=== PATIENT | female | born 1965 | race Caucasian/White ===

== ENCOUNTER 2020-10-25 07:38 | Outpatient (CLI) | payer OTHER, SELFPAY ==
--- NOTE | ~2020-10-25 | XR_ITS ---
EXAMINATION: XR hand BI arthritis min 3V EXAM DATE: 10/25/2020 08:24 INDICATION: M05.79 - Rheumatoid arthritis with rheumatoid factor of multiple sites without organ or s ystems involvement . TECHNIQUE: Right hand frontal, lateral and oblique projections obtained and reviewed. Left hand fron tucker, lateral and oblique projections obtained and reviewed. Catchers projection of both hands. There is no prior study for comparison. FINDINGS: Right hand: There are no bony erosions identified. There is mild 1st metacarpophalangeal, polyarticul ar interphalangeal primary osteoarthritis. There are no acute fractures or dislocations identified. There is no subcutaneous gas. The soft tissue is unremarkable. There are no radiopaque foreign bod ies. Left hand: Mild 2nd metacarpophalangeal, polyarticular interphalangeal primary osteoarthritis. There are no bony erosions identified. There are no acute fractures or dislocations identified. There is no subcutaneous gas. The soft tissue is unremarkable. There are no radiopaque foreign bodies. IMPRESSION: Mild polyarticular osteoarthritis. No erosions. Reviewed, dictated and finalized at location B.
--- NOTE | ~2020-10-25 | XR_ITS ---
EXAMINATION: XR foot RT standing 2V EXAM DATE: 10/25/2020 08:24 INDICATION: M05.79 - Rheumatoid arthritis with rheumatoid factor of multiple sites without organ or s ystems involvement. TECHNIQUE: Frontal and lateral projections of the right foot standing. Correlation is made to contra lateral foot same date. FINDINGS: There is minimal 1st metatarsophalangeal joint primary osteoarthritis. There are no bony e rosions identified. There are no acute fractures or dislocations identified. There is no subcutaneou s gas. The soft tissue is unremarkable. There are no radiopaque foreign bodies. IMPRESSION: Minimal right 1st MTP osteoarthritis. Reviewed, dictated and finalized at location B.
--- NOTE | ~2020-10-25 | XR_ITS ---
EXAMINATION: XR foot LT standing 2V EXAM DATE: 10/25/2020 08:24 INDICATION: M05.79 - Rheumatoid arthritis with rheumatoid factor of mult. TECHNIQUE: Frontal and lateral projections of the left foot standing. Correlation is made to contral ateral foot same date. FINDINGS: There are no bony erosions identified. There is mild left 1st metatarsophalangeal primary osteoarthritis. There are no acute fractures or dislocations identified. There is no subcutaneous ga s. The soft tissue is unremarkable. There are no radiopaque foreign bodies. IMPRESSION: Mild left 1st MTP osteoarthritis. Reviewed, dictated and finalized at location B.
[2020-10-25 08:13] LABS: Hematocrit 39.3 % (37.0-47.0); Hemoglobin 13.2 g/dL (12.0-15.0); Mean Corpuscular HGB Conc 33.6 g/dl (32-36); Mean Corpuscular Hemoglobin 30.6 pg (26-34); Mean Corpuscular Volume 91.2 fl (80-100); Mean Platelet Volume 9.7 fl (7.4-10.4); Platelet Count Result 188 k/mm3 (150-375); Red Blood Count 4.31 M/mm3 (4.2-5.4); Red Cell Distribution Width 12.3 % (11.5-14.5); White Blood Count 5.1 K/mm3 (4.5-10.0)
[2020-10-25 08:25] LABS: Add Urine Microscopic? YES; Appearance Urine Clear (Clear); Bacteria Urine Trace /hpf; Bilirubin Urine Negative (Negative); Blood Urine 2+ (Negative); Color Urine Yellow (Yellow); Glucose Urine UA Negative (Negative); Ketones Urine Negative (Negative); Leukocyte Esterase Ur 2+ LEU/UL (Negative); Mucus Urine Rare /lpf; Nitrate Urine Negative (Negative); Protein Urine Negative (Negative); Specific Grav Ur 1.013 (1.001-1.035); Squamous Epithelial Cell Urine Few /hpf (Few); Urobilinogen Urine Negative mg/dL (<2.0); WBC Urine 0-3 /hpf
[2020-10-25 08:29] LABS: Rheumatoid Factor 40.8 IU/ML (<12)
[2020-10-25 08:58] LABS: Thyroid Stimulating Hormone 0.788 uIU/mL (0.465-4.680)
[2020-10-25 09:36] LABS: Alanine Aminotransferase 74 U/L (4-35); Albumin Level 4.1 g/dL (3.5-5.1); Alkaline Phosphatase 71 U/L (38-126); Anion Gap 7 mmol/L (8-16); Aspartate Amino Transferase 65 U/L (14-36); Bilirubin,Total 0.3 mg/dL (0.2-1.3); Blood Urea Nitrogen 12 mg/dL (7-17); CRP 0.6 mg/dL (<1.0); Calcium 8.9 mg/dL (8.4-10.2); Carbon Dioxide 27 mmol/L (22-30); Chloride 107 mmol/L (98-107); Estimated Glomerular Filt Rate > 60; Glucose 97 mg/dL (65-105); Sodium 141 mmol/L (137-145)
[2020-10-25 09:40] LABS: LDL Cholesterol Direct 99 mg/dL
[2020-10-25 09:41] LABS: Cholesterol 218 mg/dL (0-200); HDL Direct 58 mg/dL; Triglycerides 61 mg/dL (<150)
[2020-10-25 10:09] LABS: Free T4 Free Thyroxine 1.36 ng/mL (0.78-2.19)
[2020-10-25 11:42] LABS: Erythrocyte Sedimentation Rate 31 mm/hr (0-20)
[2020-10-27 10:06] LABS: Anti Cyclic Citrullinated Pept 194 Units (<20)
== END 2020-10-25 07:39 | disposition home or self-care (01) ==
PROVIDERS: PCP Family Medicine; Referring Provider Internal Medicine; Visit Provider Family Medicine
DX: M05.79 Rheumatoid arthritis with rheumatoid factor of multiple sites without organ or systems involvement (principal); E03.9 Hypothyroidism, unspecified; Z13.220 Encounter for screening for lipoid disorders; M19.042 Primary osteoarthritis, left hand; M19.041 Primary osteoarthritis, right hand; M19.072 Primary osteoarthritis, left ankle and foot; M19.071 Primary osteoarthritis, right ankle and foot
CPT/HCPCS: 36415; 73130; 73620; 80053; 80061; 81001; 84439; 84443; 85027; 85652; 86038; 86039; 86140; 86200; 86430

== ENCOUNTER 2021-10-31 18:24 | Emergency (ER) | payer OTHER, SELFPAY ==
--- NOTE | ~2021-10-31 | XR_ITS ---
EXAMINATION: XR chest 2V Exam Date/Time: 10/31/2021 19:20 CDT HISTORY: palpitations X TODAY, HX MITRAL VALVE PROLAPSE X20 YRS AGO Comparison: 04/12/2004 and 04/25/2004. RESULT: Lines, tubes, and devices: None. Lungs and pleura: Clear. Cardiomediastinal silhouette: Stable cardiomediastinal silhouette. Other: No acute osseous or upper abdominal finding. IMPRESSION: No acute cardiopulmonary process. Reviewed, dictated and finalized at location K.
--- NOTE | 2021-10-31 18:27 | ECG_ITS ---
Measurements Intervals [place] Rate: 137 P: 74 RI: 146 QRS: 114 QRSD: 102 T: 62 QT: 314 QTc: 474 Interpretive Statements SINUS TACHYCARDIA BASELINE ARTIFACT LEFT POSTERIOR FASCICULAR BLOCK BORDERLINE ECG NO PREVIOUS ECG AVAILABLE FOR COMPARISON Electronically Signed On 11-01-2021 14:34:24 CDT by See Brown M.D.
[2021-10-31 18:38] LABS: Basophils Absolute Auto 0.1 K/mm3 (0.0-0.1); Basophils Percent Auto 0.7 % (0.2-1.2); Eosinophils Absolute Auto 0.3 K/mm3 (0-0.3); Eosinophils Percent Auto 4.3 % (0-4.4); Hematocrit 41.4 % (37.0-47.0); Immature Granulocyte Absolute 0.01 K/mm3 (0.00-0.031); Immature Granulocyte Percent A 0.1 % (0-0.5); Lymphocytes Absolute Auto 2.58 K/mm3 (0.9-3.2); Lymphocytes Percent Auto 38.6 % (18.3-44.2); Mean Corpuscular HGB Conc 33.8 g/dl (32-36); Mean Corpuscular Volume 88.8 fl (80-100); Monocytes Absolute Auto 0.6 K/mm3 (0.1-0.6); Monocytes Percent Auto 8.2 % (2.6-8.5); Neutrophils Absolute Auto 3.2 K/mm3 (1.3-6.7); Neutrophils Percent Auto 48.1 % (45.5-73.1); Platelet Count Result 209 k/mm3 (150-375); Red Blood Count 4.66 M/mm3 (4.2-5.4); Red Cell Distribution Width 12.1 % (11.5-14.5); White Blood Count 6.7 K/mm3 (4.5-10.0)
[2021-10-31 18:52] LABS: Partial Thromboplastin Time 28.3 SECONDS (22.3-36.8); Prothrombin Time 12.6 Seconds (11.1-14.7)
[2021-10-31 18:55] LABS: Alanine Aminotransferase 22 U/L (6-35); Albumin Level 4.9 g/dL (3.5-5.1); Alkaline Phosphatase 84 U/L (38-126); Anion Gap 11 mmol/L (8-16); Aspartate Amino Transferase 31 U/L (14-36); Bilirubin,Total 0.3 mg/dL (0.2-1.3); Blood Urea Nitrogen 13 mg/dL (7-17); Calcium 9.4 mg/dL (8.4-10.2); Carbon Dioxide 25 mmol/L (22-30); Chloride 103 mmol/L (98-107); Estimated Glomerular Filt Rate > 60; Glucose 137 mg/dL (65-110); Lipase 149 U/L (23-300); Potassium 3.1 mmol/L (3.4-5.0); Sodium 139 mmol/L (137-145)
[2021-10-31 19:11] LABS: Troponin I < 0.012 ng/mL (0.000-0.034)
[2021-10-31 19:15] VITALS: BP 171/79; PULSE 104; RESP 18; TEMP 37.2; O2SAT 99
[2021-10-31 21:13] VITALS: BP 136/85; PULSE 94; RESP 20; O2SAT 99
--- NOTE | 2021-10-31 21:37 | ECG_ITS ---
Measurements Intervals [place] Rate: 82 P: 71 WV: 171 QRS: 68 QRSD: 106 T: 43 QT: 365 QTc: 428 Interpretive Statements SINUS RHYTHM NORMAL ECG COMPARED TO ECG 10/31/2021 18:28:44 HEART RATE HAS DECREASED AND LEFT POSTERIOR FASCICULAR BLOCK NO LONGER APPRECIATED Electronically Signed On 11-01-2021 14:37:46 CDT by See Brown M.D.
--- NOTE | 2021-10-31 21:38 | ED.ARRPALP ---
HPI - Arrhythmia/Palpitations General Chief Complaint: Arrhythmia/Palpitations <ELIDA Santiago Last Filed: 11/01/21 02:50> Stated Complaint: heart racing <Tejal Corey PA-C - Last Filed: 11/01/21 02:50> Time Seen by Provider: 10/31/21 21:25 <ELIDA Santiago Last Filed: 11/01/21 02:50> History of Present Illness HPI narrative: Patient is a 56-year-old female here with a history of hypothyroidism here for evaluation of several seconds of palpitations earlier today. Patient states that she was at dinner when she noted that her heart was going very fast and she believes she skipped several beats. This lasted for several seconds at a time, and resolved without intervention. She does state that she has a history of palpitations but they usually do not last this long. She denies any chest pain, shortness of breath, syncope, headaches, dizziness, nausea, vomiting, abdominal pain. She has a history of mitral valve prolapse that was diagnosed with an echocardiogram, but she has not had one for the past decade. <ELIDA Santiago Last Filed: 11/01/21 02:50> Related Data Allergies/Adverse Reactions: Allergies Allergy/AdvReac Type Severity Reaction Status Date / Time No Known Allergies Allergy Verified 10/31/21 19:18 <Tejal Corey PA-C - Last Filed: 11/01/21 02:50> Review of Systems Review of Systems: Gen.: Denies fevers or chills Eyes: Denies eye pain or visual change ENT: Denies congestion Respiratory: Denies shortness of breath or cough CV: Reports palpitations. GI: Denies abdominal pain nausea, emesis or diarrhea denies burning, urgency, frequency or hematuria Musculoskeletal: Denies back pain or muscle pain Neuro: Denies numbness, tingling, weakness or focal weakness Skin: Denies rash Except as documented, all other systems reviewed and negative <ELIDA Santiago Last Filed: 11/01/21 02:50> [facility] Past Medical History Medical History: Medical History ANNIE positive Arthritis History of IBS Hypothyroidism Mitral valve prolapse Nasal drainage Rheumatoid arthritis with rheumatoid factor of multiple sites without organ or systems involvement Screening for lipid disorders Thyroid disorder Transaminitis <Tejal Corey PA-C - Last Filed: 11/01/21 02:50> Family History Family History: Family History Father Alcoholism Mother Diabetes mellitus Hypertension Cerebrovascular accident Thyroid disorder Other Cancer Grandparent Cancer <Tejal Corey PA-C - Last Filed: 11/01/21 02:50> Social History Social History: Social History Smoking status: Never smoker Alcohol intake: never Substance use: never Substance use type: does not use 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 Head: Normocephalic and atraumatic. EYES: PERRLA/EOMI, conjunctivae clear NOSE: No nasal drainage EARS: External ear normal in appearance THROAT: Oropharynx is clear. Mucous membranes are moist. NECK: Supple. No adenopathy, no masses. RESPIRATORY: Airway patent, respirations nonlabored. Clear to auscultation bilaterally, no rales, rhonchi, wheezing. CARDIOVASCULAR: Fast rate. Regular rhythm without murmurs, rubs, or gallops. ABDOMINAL: Normoactive bowel sounds. Soft, nontender, nondistended. No rebound tenderness or guarding. MUSCULOSKELETAL: Extremities are warm and well-perfused. Moves all extremities well. No edema. NEURO: Normal speech. No focal neurologic deficits. SKIN: Skin is warm and dry. No rashes. PSYCHIATRIC: Normal affect/mood. <Tejal Bales
[2021-10-31 21:54] LABS: Troponin I < 0.012 ng/mL (0.000-0.034)
[2021-10-31 21:58] LABS: Magnesium 2.2 mg/dL (1.6-2.3); Phosphorus 2.7 mg/dL (2.5-4.5)
[2021-10-31 22:26] LABS: Thyroid Stimulating Hormone 0.428 uIU/mL (0.465-4.680)
--- NOTE | 2021-10-31 23:21 | PC.NURSE ---
Pt did not want Aspirin tablets/
[2021-11-01 02:56] VITALS: BP 111/56; PULSE 79; RESP 17; O2SAT 97
== END 2021-11-01 00:23 | disposition home or self-care (01) ==
PROVIDERS: Family Medicine; Physician Assistant; Emergency Provider Emergency Medicine; PCP Family Medicine
DX: R00.2 Palpitations (principal); I34.1 Nonrheumatic mitral (valve) prolapse; E03.9 Hypothyroidism, unspecified; E07.9 Disorder of thyroid, unspecified; M05.79 Rheumatoid arthritis with rheumatoid factor of multiple sites without organ or systems involvement; M19.90 Unspecified osteoarthritis, unspecified site; K58.9 Irritable bowel syndrome, unspecified; R00.0 Tachycardia, unspecified; I44.5 Left posterior fascicular block
CPT/HCPCS: 36415; 71046; 80053; 83690; 83735; 84100; 84436; 84443; 84484; 85025; 85610; 85730; 93005; 99284

== ENCOUNTER → 2021-12-14 09:52 | Outpatient (CLI) | payer OTHER, SELFPAY ==
--- NOTE | ~2021-12-14 | MM_ITS ---
EXAMINATION: MM screening gladys BI w munir HISTORY: Screening TECHNIQUE: Craniocaudal and mediolateral oblique 3-D tomosynthesis images were obtained and synthetic 2-D images were generated. CAD analysis was submitted and interpreted. COMPARISON: No prior mammogram is available for comparison at this institution. BREAST PARENCHYMAL COMPOSITION: There are scattered areas of fibroglandular density. FINDINGS: There is no evidence of suspicious mass, calcification, or architectural distortion to sugg est malignancy in either breast. There has been no suspicious interval change. IMPRESSION: 1. No mammographic evidence of malignancy. 2. Recommend routine screening mammography in one year. BI-RADS Category 1: Negative Reviewed, dictated and finalized at location A.
== END ==
PROVIDERS: PCP Family Medicine; Visit Provider Family Medicine
DX: Z12.31 Encounter for screening mammogram for malignant neoplasm of breast (principal)
CPT/HCPCS: 77063; 77067

== ENCOUNTER 2021-12-18 12:36 | Outpatient (CLI) | payer OTHER, SELFPAY ==
--- NOTE | 2021-12-18 12:57 | ECHO_ITS ---
Patient Info Name: Susannah Gutiérrez Age: 56 years : 1965 Gender: Female Ht: 67 in Wt: 160 lbs BSA: 1.86 m2 HR: 81 bpm BP: 134 / 94 mmHg Technical Quality: Good Exam Date: 12/18/2021 1:33 PM Exam Location: [facility] Patient Status: Outpatient Admit Date: 12/18/2021 Staff Ordering Physician: Minerva Chavira Turkey Farmer: Jese Lux RDCS, RT Attending Provider: Minerva Chavira Referring Physician: Fan ESTRADA; Exam Type: CA echo doppler color flow Study Info Indications R00.2 - Palpitations Complete two-dimensional, color flow and Doppler transthoracic echocardiogram is performed. Strain analysis performed. Summary 1. Complete two-dimensional, color flow and Doppler transthoracic echocardiogram is performed. 2. Left ventricular chamber dimension is normal. 3. Left ventricular systolic function is normal, estimated at 60-65%. 4. The left ventricular diastolic function is grade I diastolic dysfunction. 5. E/e' 7 is not elevated. 6. Global longitudinal strain is normal at -21.2%. Left Ventricle E/e' 7 is not elevated. Global longitudinal strain is normal at -21.2%. Left ventricular chamber dimension is normal. Left ventricular systolic function is normal, estimated at 60-65%. The left ventricular diastolic function is grade I diastolic dysfunction. Right Ventricle Right ventricular systolic function is normal and with normal TAPSE 1.8 cm. Right ventricular chamber dimension is normal. Left Atria Left atrial chamber dimension is normal. Right Atria Right atrial chamber dimension is normal. Aortic Valve The aortic valve is trileaflet. There is no aortic valve stenosis. There is no aortic valve regurgitation. Pulmonic Valve There is no pulmonic regurgitation. Mitral Valve There is no mitral valve stenosis. There is no mitral valve regurgitation. Tricuspid Valve There is no tricuspid valve regurgitation. Pericardium/Pleural There is no pericardial effusion. Inferior Vena Cava Normal inferior vena cava with >50% collapse upon inspiration consistent with normal right atrial pressure, 5 mmHg. Aorta The aortic root size at the sinus of Valsalva is normal. Left Ventricular Outflow Tract Name Value Normal LVOT 2D LVOT Diameter 2.0 cm LVOT Doppler LVOT Peak Gradient 3 mmHg LVOT Mean Gradient 2 mmHg LVOT VTI 20 cm LVOT VTI/AV VTI Ratio 0.8 LVOT Stroke Volume 65 ml LVOT CO 4.6 l/min LVOT CI 2.5 l/min/m2 Mitral Valve Name Value Normal MV Doppler MV Decel [facility] 306 cm/s2 MV PHT 54 ms MV Area (PHT)
--- NOTE | 2021-12-20 15:03 | WPDHOLTEREM ---
Holter/Event Monitor Holter/Event Monitor Date of procedure: 12/18/21 Holter/Event Procedure: 24 Hr Holter Monitor Indications: Palpitations Conclusion: 1. 24 hour holter monitor on 12/18/21. 2. Underlying rhythm is sinus rhythm. HR range 48-150 bpm; average HR 79 bpm. 3. There is 1 premature supraventricular complexes. No supraventricular tachycardia. 4. There are 22 premature ventricular complexes. No ventricular tachycardia. 5. No sinoatrial or atrioventricular blocks. No significant pauses greater than 2 seconds. 6. Patient reports symptoms of palpitations which demonstrate sinus rhythm at 88 bpm.
== END 2021-12-18 12:37 | disposition home or self-care (01) ==
LOC: ANHCARD 12:38
PROVIDERS: PCP Family Medicine; Visit Provider Nurse Practitioner Family
DX: I34.1 Nonrheumatic mitral (valve) prolapse (principal); R00.2 Palpitations
CPT/HCPCS: 93225; 93226; 93306

== ENCOUNTER → 2023-02-06 15:44 | Outpatient (CLI) | payer OTHER, SELFPAY ==
--- NOTE | ~2023-02-06 | MM_ITS ---
EXAMINATION: MM screening gladys BI w munir HISTORY: Screening mammogram TECHNIQUE: Craniocaudal and mediolateral oblique 3-D tomosynthesis images were obtained and synthetic 2-D images were generated. CAD analysis was submitted and interpreted. COMPARISON: 12/14/2021 bilateral screening mammogram BREAST PARENCHYMAL COMPOSITION: There are scattered areas of fibroglandular density. FINDINGS: There is no evidence of suspicious mass, calcification, or architectural distortion to sugg est malignancy in either breast. There has been no suspicious interval change. IMPRESSION: 1. No mammographic evidence of malignancy. 2. Recommend routine screening mammography in one year. BI-RADS Category 1: Negative Reviewed, dictated and finalized at location A.
== END ==
PROVIDERS: PCP Family Medicine; Visit Provider Physician Assistant Medical
DX: Z12.31 Encounter for screening mammogram for malignant neoplasm of breast (principal)
CPT/HCPCS: 77063; 77067